=== PATIENT | male | born 1960 | race Caucasian/White ===

== ENCOUNTER 2016-11-13 22:21 | Emergency (ER) | payer MEDICAID ==
[~2016-11-13] VITALS: Ht 180.3 cm; Wt 120.2 kg
[~2016-11-13 22:21] MED LIST: CEPH-568 PO; CIPR-172 PO
[2016-11-13 22:31] VITALS: BP 154/95; PULSE 66; RESP 14; TEMP 97.6; O2SAT 97
--- NOTE | 2016-11-13 22:38 | NUR ---
Patient to ER bed 1 to gown for evaluation. Side rails up. Report given to JONATHAN Kirby.
--- NOTE | 2016-11-13 22:50 | NUR ---
Pt presemts to ED with c/o middle abdomen pain 8/10 x 3 days. Pt stated that he has N/V at home, with some dizziness. A&Ox4, denies SOB or chestpain, no diarrhea per pt. Abdomen soft, non tender, bowel sound presents. Will continue to monitor
--- NOTE | 2016-11-13 23:10 | NUR ---
at bedside examining pt
[2016-11-13] MEDS ORDERED: NACL 0.9% 1,000 ML IV ONE (23:11)
[2016-11-13] MEDS ORDERED: PROCHLORPERAZINE EDISYLATE 10 MG/2 ML VIAL IVP ONE (23:15)
[2016-11-13] MEDS ORDERED: KETOROLAC TROMETHAMINE 30 MG VIAL IVP ONE (23:15)
[2016-11-13] MEDS ORDERED: PANTOPRAZOLE SODIUM 40 MG/VIAL (PROTONIX) IVP ONE (23:15)
[2016-11-13 23:35] LABS: BASOPHILS % (AUTO) 0.5 % (0.0-2.0); EOSINOPHILS # (AUTO) 0.2 K/uL (0.0-0.4); EOSINOPHILS % (AUTO) 2.7 % (0.0-4.0); HEMATOCRIT 46.4 % (36-54); LYMPHOCYTES # (AUTO) 2.9 K/uL (1.0-5.5); LYMPHOCYTES % (AUTO) 32.8 % (20.5-51.5); MEAN CORPUSCULAR HEMOGLOBIN 29 pg (27-31); MEAN CORPUSCULAR HGB CONC 34 % (32-36); MEAN CORPUSCULAR VOLUME 85 fL (79.0-98.0); MONOCYTES # (AUTO) 0.8 K/uL (0.0-1.0); MONOCYTES % (AUTO) 9.7 % (1.7-9.3); NEUTROPHILS # (AUTO) 4.8 K/uL (1.8-7.7); NEUTROPHILS % (AUTO) 54.3 % (40.0-70.0); PLATELET COUNT (AUTO) 243 K/uL (130-430); RED BLOOD CELL COUNT(AUTO) 5.49 MIL/uL (4.2-6.2); RED CELL DISTRIBUTION WIDTH 12.2 % (9.0-15.0); WHITE BLOOD COUNT (AUTO) 8.7 K/uL (4.8-10.8)
[2016-11-13 23:36] LABS: CALCIUM 9.2 mg/dL (8.4-11.0); CREATININE 1.1 mg/dL (0.55-1.30)
[2016-11-13 23:41] LABS: ALBUMIN 4.4 g/dL (3.4-4.8); TOTAL BILIRUBIN 0.7 mg/dL (0.0-1.0); TOTAL PROTEIN, SERUM 8.6 g/dL (6.4-8.3)
--- NOTE | 2016-11-13 23:47 | NUR ---
CT abdomen with contrast consent obtained from pt, pt verbalized understanding. 2 pt identifiers used
[2016-11-13] MEDS ORDERED: IOHEXOL 100 ML IV ONE (23:52)
--- NOTE | 2016-11-14 00:34 | NUR ---
Pt appeared resting comfortably. Denies pain or distress at the moment
[2016-11-14] MEDS ORDERED: MAG HYDROX/AL HYDROX/SIMETH 30 ML, LIDOCAINE VISCOUS 2% 15ML (PO) 10 ML, BELLADONNA ALK... PO ONE ×3 (01:30)
[2016-11-14 02:05] VITALS: BP 143/82; PULSE 69; RESP 16; TEMP 97.8; O2SAT 95
--- NOTE | 2016-11-14 02:05 | NUR ---
Patient given written and verbal discharge instructions and verbalizes understanding. ER MD Dr. Quintero discussed with patient the results and treatment provided. Patient in stable condition. ID arm band removed. IV catheter removed intact and dressing applied, no active bleeding. Patient educated on pain management and to follow up with PMD. Pain Scale 0/10. Opportunity for questions provided and answered.
== END 2016-11-14 02:05 | disposition home or self-care (01) ==
LOC: SED 22:21
DX: R10.13 Epigastric pain (principal); Z90.49 Acquired absence of other specified parts of digestive tract
CPT/HCPCS: 36415; 74177; 80053; 83690; 85025; 96361; 96374; 96375; 99285; C9113; J0780; J1885; J2001; J7030; Q9967

== ENCOUNTER 2018-09-04 19:47 | Emergency (ER) | payer MEDICAID ==
[~2018-09-04] VITALS: Ht 180.3 cm; Wt 111.1 kg
[2018-09-04 19:54] VITALS: BP_SYST 141
[2018-09-04 23:02] VITALS: BP_SYST 141
== END 2018-09-04 23:02 | disposition home or self-care (01) ==
LOC: SED 19:47
DX: M72.2 Plantar fascial fibromatosis (principal); Z90.89 Acquired absence of other organs
CPT/HCPCS: 99283